=== PATIENT | male | born 2000 | race Caucasian/White ===

== ENCOUNTER 2024-11-22 15:04 | Emergency (ER) | payer MEDICAID ==
[~2024-11-22] VITALS: Ht 170.2 cm; Wt 78.6 kg
[2024-11-22 15:18] VITALS: O2SAT 96
[2024-11-22] MEDS: TETRACAINE 0.5% OPHTH DROPS 4ML BOTHEYE ONE (18:04)
[2024-11-22] MEDS: FLUORESCEIN SODIUM 1MG/STRIP LEFTEYE ONE (18:04)
[2024-11-22] MEDS ORDERED: BRIM2.5D LEFTEYE (18:33)
[2024-11-22 18:40] VITALS: BP 111/62; PULSE 60; RESP 18; TEMP 36.8; O2SAT 96
== END 2024-11-22 18:39 | disposition home or self-care (01) ==
LOC: ER 15:04 → EDBD 15:04 → ER 18:39
DX: H57.12 Ocular pain, left eye (principal); Z79.899 Other long term (current) drug therapy
CPT/HCPCS: 99283